=== PATIENT | female | born 1960 | race Caucasian/White ===

== ENCOUNTER 2021-01-24 07:04 | Outpatient (REF) | payer BC, SELFPAY ==
[2021-01-24 11:17] LABS: MANUAL DIFF FLAG NO
[2021-01-24 11:34] LABS: Glucose Urine UA NEG (NEG); Leukocyte Esterase Urine 1+ (NEG); Nitrite Urine NEG (NEG); Specific Gravity - Urine 1.025 (1.005-1.025); Urine Blood NEG (NEG); Urine Ketones NEG (NEG); Urine Protein NEG (NEG-TRACE)
[2021-01-24 11:39] LABS: Appearance Urine CLEAR; Color Urine YELLOW
[2021-01-24 11:41] LABS: Basophils Percent Auto 0.7 % (0-2); Eosinophils Absolute Auto 0.1 X10*3/uL (0.0-0.4); Eosinophils Percent Auto 2.2 % (0-4); Hematocrit 38.6 % (37-47); Hemoglobin 12.5 g/dl (12.0-16.0); Imm Gran Abs Auto 0.01 X10*3/uL (0.00-0.03); Imm Gran Pct Auto 0.2 % (0.0-0.4); Lymphocytes Percent Auto 44.8 % (20-40); Mean Corpuscular HGB Conc 32.4 g/dl (31.0-35.0); Mean Corpuscular Hemoglobin 30.3 pg (27.0-33.0); Mean Corpuscular Volume 93.7 fL (80-98); Mean Platelet Volume 11.1 fL (9.4-12.3); Monocytes Absolute Auto 0.4 X10*3/uL (0.1-1.2); Monocytes Percent Auto 7.8 % (2-11); Neutrophils Percent Auto 44.3 % (45-73); Platelet Count 215 X10*3/uL (160-400); Red Blood Count 4.12 X10*6/uL (4.20-5.50); Red Cell Distribution Width 12.6 % (11.0-16.0); White Blood Count 4.5 X10*3/uL (4.8-10.8)
[2021-01-24 11:51] LABS: Alanine Aminotransferase 20 U/L (0-31); Albumin Level 4.4 g/dL (3.5-5.0); Alkaline Phosphatase 125 U/L (39-117); Anion Gap 13 (12-20); Aspartate Amino Transferase 17 U/L (5-31); Bilirubin Total 0.4 mg/dL (0.0-1.0); Blood Urea Nitrogen 24 mg/dL (9-16); Carbon Dioxide 24 mmol/L (22-29); Chloride 111 mmol/L (96-108); Cholesterol 199 mg/dL; Estimated Glomerular Filt Rate 60; Glucose Fasting 109 mg/dL (60-99); HDL Cholesterol 60 mg/dL; LDL Cholesterol Calculated 110 mg/dl; Potassium 4.7 mmol/L (3.3-5.1); Sodium 143 mmol/L (135-145); Total Protein 6.7 g/dL (6.5-8.0); Triglycerides 149 mg/dL
[2021-01-24 12:03] LABS: Vitamin D 25-OH Total 42.3 ng/mL (>30)
[2021-01-24 12:56] LABS: Calcium 11.3 mg/dL (8.4-10.2)
[2021-01-24 13:17] LABS: RBC Urine 0 /HPF (0)
[2021-01-24 13:18] LABS: Squamous Epithelial Cell Urine 2+ /LPF
== END 2021-01-24 07:05 | disposition home or self-care (01) ==
LOC: HO.HMGCLDS 07:04
PROVIDERS: PCP Internal Medicine; Visit Provider Internal Medicine
DX: Z00.00 Encounter for general adult medical examination without abnormal findings (principal)
CPT/HCPCS: 36415; 80053; 80061; 81001; 82306; 85025

== ENCOUNTER 2021-01-29 12:08 | Outpatient (REF) | payer BC, SELFPAY ==
[2021-01-29 14:16] LABS: Glucose Urine UA NEG (NEG); Leukocyte Esterase Urine 2+ (NEG); Nitrite Urine NEG (NEG); PH 5.5 (5.0-8.0); Specific Gravity - Urine 1.025 (1.005-1.025); Urine Blood NEG (NEG); Urine Ketones NEG (NEG); Urine Protein NEG (NEG-TRACE)
[2021-01-29 14:22] LABS: Appearance Urine CLOUDY; Color Urine YELLOW
[2021-01-29 14:55] LABS: Bacteria Urine TRACE /LPF; RBC Urine 0-2 /HPF (0); Squamous Epithelial Cell Urine 1+ /LPF
[2021-01-30 12:56] LABS: Calcium (PTHI) 11.4 mg/dL (8.6-10.4); PTHI 150 pg/mL (14-64)
[2021-01-30 14:56] LABS: Calcium, Ionized 6.1 mg/dL (4.8-5.6)
== END 2021-01-29 12:09 | disposition home or self-care (01) ==
LOC: HO.HMGCLDS 12:08
PROVIDERS: PCP Internal Medicine; Visit Provider Internal Medicine
DX: Z00.00 Encounter for general adult medical examination without abnormal findings (principal); E83.52 Hypercalcemia
CPT/HCPCS: 36415; 81001; 82330; 83970

== ENCOUNTER → 2021-03-07 08:04 | Outpatient (BNVA) | payer BC, SELFPAY | PROVIDERS: PCP Internal Medicine; Referring Provider Internal Medicine; Visit Provider Physician Assistant ==

== ENCOUNTER 2022-02-13 07:23 | Outpatient (REF) | payer BC, SELFPAY ==
[2022-02-13 11:29] LABS: Hematocrit 37.4 % (37.0-47.0); Hemoglobin 11.9 g/dl (12.0-16.0); Mean Corpuscular HGB Conc 31.8 g/dl (31.0-35.0); Mean Corpuscular Hemoglobin 29.5 pg (27.0-33.0); Mean Corpuscular Volume 92.8 fL (80.0-98.0); Mean Platelet Volume 11.2 fL (9.4-12.3); Platelet Count 180 X10*3/uL (160-400); Red Blood Count 4.03 X10*6/uL (4.20-5.50); Red Cell Distribution Width 12.9 % (11.0-16.0); White Blood Count 3.7 X10*3/uL (4.8-10.8)
[2022-02-13 11:35] LABS: Appearance Urine HAZY; Color Urine YELLOW; Glucose Urine UA NEG (NEG); Leukocyte Esterase Urine 3+ (NEG); Nitrite Urine NEG (NEG); Urine Blood TRACE (NEG); Urine Ketones NEG (NEG); Urine Protein NEG (NEG-TRACE)
[2022-02-13 12:18] LABS: Alanine Aminotransferase 23 U/L (0-31); Albumin Level 4.2 g/dL (3.5-5.0); Alkaline Phosphatase 106 U/L (39-117); Anion Gap 12 (12-20); Aspartate Amino Transferase 18 U/L (5-31); Bilirubin Total 0.3 mg/dL (0.0-1.0); Blood Urea Nitrogen 18 mg/dL (9-16); Calcium 9.7 mg/dL (8.4-10.2); Carbon Dioxide 23 mmol/L (22-29); Chloride 111 mmol/L (96-108); Cholesterol 187 mg/dL; Estimated Glomerular Filt Rate 59; Glucose Fasting 112 mg/dL (60-99); HDL Cholesterol 58 mg/dL; LDL Cholesterol Calculated 99 mg/dl; Potassium 4.4 mmol/L (3.3-5.1); Sodium 142 mmol/L (135-145); Total Protein 6.5 g/dL (6.5-8.0); Triglycerides 152 mg/dL
[2022-02-13 12:23] LABS: Vitamin D 25-OH Total 42.3 ng/mL (>30)
[2022-02-13 13:06] LABS: Carbamazepine Tegretol 5.3 mcg/mL (5.0-12.0)
[2022-02-13 13:46] LABS: Squamous Epithelial Cell Urine 4+ /LPF
[2022-02-13 13:47] LABS: Bacteria Urine 2+ /LPF
[2022-02-13 13:48] LABS: RBC Urine 0 /HPF (0)
[2022-02-14 13:41] LABS: Calcium (PTHI) 9.3 mg/dL (8.6-10.4); PTHI 60 pg/mL (16-77)
[2022-02-15 02:21] LABS: CA 125 New Method 23 U/mL (<35); CA-125 23 U/mL (<35)
== END 2022-02-13 07:24 | disposition home or self-care (01) ==
LOC: HO.HMGCLDS 07:23
PROVIDERS: PCP Internal Medicine; Visit Provider Nurse Practitioner Adult Health
DX: Z00.00 Encounter for general adult medical examination without abnormal findings (principal); E83.52 Hypercalcemia; Z80.41 Family history of malignant neoplasm of ovary
CPT/HCPCS: 36415; 80053; 80061; 80156; 81001; 82306; 83970; 85027; 86304